=== PATIENT | male | born 1980 | race African-American/Black ===

== ENCOUNTER 2019-01-01 00:09 | Emergency (ER) | payer OTHER ==
[~2019-01-01] VITALS: Ht 172.7 cm; Wt 89.4 kg
[2019-01-01 00:21] VITALS: BP 110/66
[2019-01-01] MEDS ORDERED: CLEOCIN HCL150 MG PO (01:23)
[2019-01-01] MEDS ORDERED: NAPROSYN500 MG PO (01:23)
== END 2019-01-01 01:48 | disposition home or self-care (01) ==
LOC: ER 00:09
DX: L03.114 Cellulitis of left upper limb (principal); Z88.0 Allergy status to penicillin